=== PATIENT | male | born 1940 | race Caucasian/White ===

== ENCOUNTER 2023-11-08 11:15 | Observation (INO) ==
[2023-11-08 12:02] LABS: ABS Basophils 0.1 10^3/uL (0.0-0.1); ABS Lymphocytes 1.2 10^3/uL (1.0-4.8); ABS Monocytes 0.5 10^3/uL (0.0-1.1); ABS Neutrophils 10.1 10^3/uL (1.5-7.6); Eosinophil % 0.3 %; Hematocrit 41.2 % (38-53); Hemoglobin 13.9 g/dL (13.2-16.3); Lymphocyte % 9.9 %; Mean Corpuscular Hemoglobin 31.6 pg (27-33); Mean Corpuscular Hgb Conc 33.7 g/dL (31-36); Mean Corpuscular Volume 93.8 fL (80-97); Mean Platelet Volume 8.6 fL (7.5-11.2); Platelet Count 180 10^3/uL (150-450); Red Cell Distribution Width 12.9 % (12-17); White Blood Count 11.9 10^3/uL (3.6-10.2)
[2023-11-08] MEDS ORDERED: NS 0.9% 500 ml BAG 500 ML IV ONE (12:20)
[2023-11-08 12:26] LABS: ALT 27 U/L (7-52); AST 30 U/L (13-39); Albumin 4.1 g/dL (3.2-5.2); Albumin/Globulin Ratio 1.4 (1-3); Alkaline Phosphatase 96 U/L (35-149); Anion Gap 14 mmol/L (2-16); Blood Urea Nitrogen 36 mg/dL (6-24); C Reactive Protein < 1.00 mg/L (<8.01); CO2 Carbon Dioxide 21 mmol/L (22-32); Chloride 101 mmol/L (101-111); Creatinine, Serum 1.31 mg/dL (0.67-1.17); Glucose 198 mg/dL (70-100); Lipase 114 U/L (11.0-82.0); Magnesium 1.8 mg/dL (1.9-2.7); Potassium 3.7 mmol/L (3.5-5.0); Sodium 136 mmol/L (135-145); Total Bilirubin 0.8 mg/dL (0.2-1.0); Total Protein 7.1 g/dL (6.4-8.9); eGFR CKD-EPI 54.7 (>60)
[2023-11-08 12:27] LABS: High Sens Troponin Baseline 14 pg/mL (<20)
[2023-11-08] MEDS ORDERED: Iodixanol (CONTRAST) 320 MG/ML 100 ML SDV IV ONE (12:44)
[2023-11-08 13:35] LABS: High Sensitivity Troponin 1 Hr 20 pg/mL (<20)
[2023-11-08] MEDS ORDERED: Pantoprazole VIAL 40 MG VIAL IV ONE (14:35)
[2023-11-08] MEDS ORDERED: fentaNYL 100 mcg/2 ml 50 MCG/ML VIAL ONE (16:12)
[2023-11-08] MEDS ORDERED: Midazolam 10 mg/10 ml VIAL 1 mg/ml 10 ml VIAL (10 mg) ONE (16:12)
[2023-11-08] MEDS ORDERED: Dextrose 50% Syringe 50 ml 25 GM/50 ML SYRINGE IV PUSH PRN (16:21)
[2023-11-08 18:13] LABS: Urine Appearance Cloudy; Urine Bacteria Absent (Absent); Urine Bilirubin Negative (Negative); Urine Blood 1+ (Negative); Urine Color Yellow; Urine Glucose Negative (Negative); Urine Ketones Trace (Negative); Urine Nitrite Negative (Negative); Urine Protein 2+(100 mg/dL) (Negative); Urine Red Blood Cell 1+(3-5/hpf) (Absent); Urine Squamous Epithelial Cell Present (Absent); Urine Urobilinogen Negative (Negative); Urine White Blood Cell 3+(>20/hpf) (Absent)
[2023-11-08 18:52] LABS: Urine Specific Gravity < 1.030 (1.002-1.030)
[2023-11-08] MEDS: Heparin 5000 UNITS/ML 1 mL VIAL SUBCUT SCH (21:25)
[2023-11-08] MEDS: Lactated Ringers 1000 ml BAG 1,000 ML IV SCH (21:43)
[2023-11-09] MEDS: Lactated Ringers 1000 ml BAG 1,000 ML IV SCH (05:00)
[2023-11-09 05:29] LABS: Hematocrit 35.5 % (38-53); Hemoglobin 12.3 g/dL (13.2-16.3); Mean Corpuscular Hemoglobin 31.9 pg (27-33); Mean Corpuscular Hgb Conc 34.5 g/dL (31-36); Mean Corpuscular Volume 92.4 fL (80-97); Mean Platelet Volume 7.8 fL (7.5-11.2); Platelet Count 139 10^3/uL (150-450); Red Blood Count 3.84 10^6/uL (4.06-5.63); Red Cell Distribution Width 12.7 % (12-17); White Blood Count 8.3 10^3/uL (3.6-10.2)
[2023-11-09 05:46] LABS: Calcium 8.5 mg/dL (8.6-10.3); Creatinine, Serum 1.19 mg/dL (0.67-1.17); Magnesium 1.7 mg/dL (1.9-2.7); Potassium 3.6 mmol/L (3.5-5.0); eGFR CKD-EPI 61.4 (>60)
[2023-11-09] MEDS ORDERED: Magnesium Sulfate 2 gm BAG 2 GM/50 ML BAG IVPB ONE (07:51)
[2023-11-09] MEDS: Heparin 5000 UNITS/ML 1 mL VIAL SUBCUT SCH ×2 (08:23→08:25)
[2023-11-09] MEDS ORDERED: Magnesium Sulfate IV 1GM/100ML 1 GM/100 ML BAG IV ONE (09:51)
[2023-11-09 12:05] VITALS: BP 160/74
== END 2023-11-09 13:23 | disposition home or self-care (01) ==
LOC: ED 11:15 → EDHOLD 11:15 → MED 18:05
PROVIDERS: ADMIT Hospitalist; ATTEND Hospitalist